=== PATIENT | male | born 1960 | race Caucasian/White ===

== ENCOUNTER → 2016-05-07 | Outpatient (CLI) | payer OTHER ==
[2016-05-07 13:06] LABS: BASO % 0.5 % (0.0-1.0); EOS % 0.5 % (0.0-3.0); LYMPH # 1.4 K/mm3 (1.5-4.5); LYMPH % 19.9 % (24.0-44.0); MEAN CORPUSCULAR HEMOGLOBIN 29.2 pg (27.0-33.0); MEAN CORPUSCULAR HGB CONC 32.1 g/dl (32.0-36.5); MEAN CORPUSCULAR VOLUME 90.9 fl (80.0-96.0); MONO # 0.4 K/mm3 (0.0-0.8); MONO % 5.4 % (0.0-5.0); RED CELL DISTRIBUTION WIDTH 13.2 % (11.5-14.5)
[2016-05-07 13:38] LABS: ALBUMIN 3.6 GM/DL (3.2-5.2); ALBUMIN/GLOBULIN RATIO 0.95 (1.00-1.93); ALKALINE PHOSPHATASE 114 U/L (45-117); ALT/SGPT 32 U/L (12-78); ANION GAP 9 MEQ/L (8-16); AST/SGOT 20 U/L (15-37); BILIRUBIN,TOTAL 0.4 MG/DL (0.2-1.0); BLOOD UREA NITROGEN 5 MG/DL (7-18); CALCIUM LEVEL 8.9 MG/DL (8.5-10.1); CARBON DIOXIDE LEVEL 29 MEQ/L (21-32); CHLORIDE LEVEL 104 MEQ/L (98-107); CHOLESTEROL LEVEL 216 MG/DL (<200); CREATININE FOR GFR 0.96 MG/DL (0.70-1.30); GLOMERULAR FILTRATION RATE > 60.0 (>56); GLUCOSE, FASTING 93 MG/DL (70-105); POTASSIUM SERUM 4.2 MEQ/L (3.5-5.1); SODIUM LEVEL 142 MEQ/L (136-145); TOTAL PROTEIN 7.4 GM/DL (6.4-8.2); TRIGLYCERIDES LEVEL 175 MG/DL (<150)
== END ==
LOC: M LAB 12:02
PROVIDERS: ATTEND Nurse Practitioner Adult Health
DX: D64.9 Anemia, unspecified (principal); E55.9 Vitamin D deficiency, unspecified; Z79.899 Other long term (current) drug therapy; F41.9 Anxiety disorder, unspecified
CPT/HCPCS: 36415; 80053; 80061; 80307; 82306; 85027; G0480

== ENCOUNTER 2017-02-22 19:20 | Emergency (ER) | payer OTHER ==
[~2017-02-22] VITALS: Ht 177.8 cm; Wt 90.9 kg
--- NOTE | 2017-02-22 21:20 | REPUSA ---
CT of the cervical spine Clinical history: Pain. Trauma. Technique: Multiple axial CT images were obtained through the cervical spine without administration o f contrast. Coronal and sagittal 3-D reconstructed images were also obtained. Comparison: None. Findings: The cervical vertebral bodies are in satisfactory alignment. There is reversal curvature the cervical spine. No fractures or dislocations are demonstrated. The odontoid process is intact. Intervertebral disc spaces are well-maintained. Mild facet arthropathy seen bilaterally. There is no evidence of fa cet subluxation. The neural foramen appear grossly patent. The cervical cranial junction is intact. T he cervical spinal canal demonstrates normal caliber and contour without evidence of spinal stenosis. The surrounding soft tissues are within normal limits. Impression: No acute findings. Mild spondylosis.
--- NOTE | 2017-02-22 21:20 | REPUSA ---
CT of the head Clinical history: Trauma. Protocol: Multiple axial CT images obtained with 5 mm slice thickness were obtained through the head without administration of contrast. Findings: The ventricles and sulci are symmetric but prominent in size bilaterally. There is focal en cephalomalacia in the left frontal lobe. There are periventricular areas of low attenuation throughou t the deep white matter. There is no evidence of acute hemorrhage or infarct. There is no midline liz ft, mass effect, or extra-axial fluid collection. There is chronic deformity of the left frontal bone . No discrete fracture is seen of these images. The other osseous structures are unremarkable. The vi sualized paranasal sinuses and mastoid air cells are clear. Impression: No acute hemorrhage or infarct. Findings are consistent with moderate age-related atrophy and chronic small vessel ischemic disease. 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
[2017-02-23 05:47] VITALS: BP 138/78
== END 2017-02-23 06:17 | disposition home or self-care (01) ==
LOC: M ED 19:20 → EDBD 19:20 → M ED 02-23 06:17
DX: F10.129 Alcohol abuse with intoxication, unspecified (principal); M47.9 Spondylosis, unspecified; G93.89 Other specified disorders of brain

== ENCOUNTER → 2017-03-24 | Outpatient (REF) | payer OTHER ==
[2017-03-24 17:27] LABS: BASO # 0.1 10^3/uL (0.0-0.2); BASO % 0.6 % (0.0-1.0); EOS % 0.5 % (0.0-3.0); IMMATURE GRANULOCYTE % 1.4 % (0-0); LYMPH # 1.4 10^3/uL (1.5-4.5); LYMPH % 16.3 % (24.0-44.0); MEAN CORPUSCULAR HEMOGLOBIN 29.1 pg (27.0-33.0); MEAN CORPUSCULAR HGB CONC 32.8 g/dl (32.0-36.5); MEAN CORPUSCULAR VOLUME 88.5 fl (80.0-96.0); MONO # 0.6 10^3/uL (0.0-0.8); MONO % 6.9 % (0.0-5.0); NEUTROPHILS # 6.5 10^3/uL (1.8-7.7); NEUTROPHILS % 74.3 % (36.0-66.0); PLATELET COUNT, AUTOMATED 197 10^3/uL (150-450); RED CELL DISTRIBUTION WIDTH 14.5 % (11.5-14.5); WHITE BLOOD COUNT 8.8 10^3/uL (4.0-10.0)
[2017-03-24 17:47] LABS: ALBUMIN 3.9 GM/DL (3.2-5.2); ALKALINE PHOSPHATASE 103 U/L (45-117); ALT/SGPT 68 U/L (12-78); ANION GAP 16 MEQ/L (8-16); AST/SGOT 47 U/L (7-37); BILIRUBIN,TOTAL 0.9 MG/DL (0.2-1.0); BLOOD UREA NITROGEN 11 MG/DL (7-18); CALCIUM LEVEL 8.6 MG/DL (8.5-10.1); CARBON DIOXIDE LEVEL 24 MEQ/L (21-32); CHLORIDE LEVEL 92 MEQ/L (98-107); CHOLESTEROL LEVEL 205 MG/DL (<200); CREATININE FOR GFR 0.95 MG/DL (0.70-1.30); GLOMERULAR FILTRATION RATE > 60.0 (>56); GLUCOSE, FASTING 80 MG/DL (70-105); MAGNESIUM LEVEL 2.4 MG/DL (1.8-2.4); POTASSIUM SERUM 4.5 MEQ/L (3.5-5.1); SODIUM LEVEL 132 MEQ/L (136-145); TOTAL PROTEIN 7.8 GM/DL (6.4-8.2); TRIGLYCERIDES LEVEL 112 MG/DL (<150)
[2017-03-24 17:58] LABS: FOLATE 5.1 NG/ML; VITAMIN B12 LEVEL 465 PG/ML
== END ==
LOC: M SFHCCAPE 07:57
PROVIDERS: ATTEND Physician Assistant
DX: I10 Essential (primary) hypertension (principal); Z87.898 Personal history of other specified conditions; Z12.5 Encounter for screening for malignant neoplasm of prostate

== ENCOUNTER → 2017-03-28 | Outpatient (CLI) | payer OTHER ==
--- NOTE | 2017-03-28 09:44 | REP ---
CHEST, TWO VIEWS: Two views of the chest are performed and compared to prior studies 10/08/2013 and 10/12/2009. There is interstitial fibrotic change along the left lateral chest wall with mild pleural thickening inferiorly on the left. There is minimal biapical pleural thickening. There is mild fibroatelectatic change in the right lung base. No new infiltrate is seen. The heart is normal in size. There is mild calcification of the thoracic aorta. The mediastinal silhouette is unchanged. IMPRESSION: Stable chronic findings without evidence of acute pulmonary disease. Signed by Sonu Chatterjee MD 03/28/2017 11:52 A
--- NOTE | 2017-03-29 01:17 | ECGEPIP ---
Stationary ECG Study [facility] Test Date: 2017-03-28 Pat Name: MERLENE NEVES Department: Room: - Gender: M [employer]: KAYLEIGH : 1960 Requested By: KATHIE Cornejo PA-C Order Number: [id number] Reading MD: Carlitos Wong Measurements Intervals [place] Rate: 76 P: 50 [place]: 170 QRS: 44 QRSD: 78 T: 30 QT: 355 QTc: 400 Interpretive Statements SINUS RHYTHM Tremor artifact Comparison tracing not on file Electronically Signed On 03-29-2017 1:17:42 EST by Carlitos Wong
== END ==
LOC: M RAD 08:25
PROVIDERS: ATTEND Physician Assistant
DX: R06.02 Shortness of breath (principal)

== ENCOUNTER 2017-07-20 14:44 | Emergency (ER) | payer OTHER ==
[2017-07-20] MEDS ORDERED: SUCCINYLCHOLINE 100 MG/5 ML SYRINGE (J0330) (14:45)
[2017-07-20] MEDS ORDERED: ETOMIDATE INJ 20MG/10ML VIAL (14:45)
[2017-07-20] MEDS ORDERED: LORazepam 2 MG/ML VIAL (J2060) As Ordered (14:51)
[2017-07-20] MEDS: LORazepam 2 MG/ML VIAL (J2060) IV (14:59)
[2017-07-20] MEDS: ETOMIDATE INJ 20MG/10ML VIAL IV (15:00)
[2017-07-20] MEDS: SUCCINYLCHOLINE INJ 200 MG/10 ML VIAL (J0330) IV (15:01)
[2017-07-20 15:07] LABS: BASO # 0.1 10^3/uL (0.0-0.2); BASO % 0.9 % (0.0-1.0); EOS # 0.1 10^3/uL (0.0-0.50); EOS % 0.7 % (0.0-3.0); HEMATOCRIT 44.7 % (42.0-52.0); IMMATURE GRANULOCYTE % 0.7 % (0-3.0); LYMPH # 3.1 10^3/uL (1.5-4.5); LYMPH % 23.5 % (24.0-44.0); MEAN CORPUSCULAR HEMOGLOBIN 27.3 pg (27.0-33.0); MEAN CORPUSCULAR HGB CONC 31.3 g/dl (32.0-36.5); MEAN CORPUSCULAR VOLUME 87.1 fl (80.0-96.0); MONO # 1.2 10^3/uL (0.0-0.8); MONO % 9.3 % (0.0-5.0); NEUTROPHILS # 8.6 10^3/uL (1.8-7.7); NEUTROPHILS % 64.9 % (36.0-66.0); PLATELET COUNT, AUTOMATED 449 10^3/uL (150-450); RED BLOOD COUNT 5.13 10^6/uL (4.30-6.10); RED CELL DISTRIBUTION WIDTH 14.4 % (11.5-14.5); WHITE BLOOD COUNT 13.2 10^3/uL (4.0-10.0)
[2017-07-20] MEDS: PROPOFOL 1,000 MG in APPROPRIATE DILUENT 1 EA IV ×2 (15:14→16:33)
[2017-07-20] MEDS: levETIRAcetam INJection 1,000 MG in D5W 100 ML IV (15:15)
[2017-07-20] MEDS: NS 1,000 ML IV ×2 (15:15→16:31)
[2017-07-20 15:22] LABS: AMMONIA 94 uMOL/L (<32)
[2017-07-20 15:30] LABS: ABG BASE EXCESS -5.9 (-2.0-2.0); ABG O2 SATURATION 93.2 % (95.0-99.0); ABG PARTIAL PRESSURE CO2 46.2 mmHg (35.0-45.0); ABG PARTIAL PRESSURE O2 79.4 mmHg (75.0-100.0); ABG STANDARD HCO3 19.6 MEQ/L (22.0-26.0); ABG TOTAL CO2 22.4 MEQ/L (22.0-29.0); ABG pH (ARTERIAL) 7.275 UNITS (7.350-7.450)
[2017-07-20] MEDS ORDERED: ISOVUE-370 76% 100ML VIAL (Q9967) As Ordered (15:36)
[2017-07-20 15:38] LABS: ALBUMIN 3.5 GM/DL (3.2-5.2); ALKALINE PHOSPHATASE 123 U/L (45-117); ALT/SGPT 40 U/L (12-78); ANION GAP 14 MEQ/L (8-16); AST/SGOT 37 U/L (7-37); BILIRUBIN,DIRECT 0.1 MG/DL (0.0-0.2); BILIRUBIN,TOTAL 0.5 MG/DL (0.2-1.0); BLOOD UREA NITROGEN 8 MG/DL (7-18); CARBON DIOXIDE LEVEL 23 MEQ/L (21-32); CHLORIDE LEVEL 101 MEQ/L (98-107); CPK CREATINE PHOSPHOKINASE 56 U/L (39-308); CREATININE FOR GFR 1.15 MG/DL (0.70-1.30); GLOMERULAR FILTRATION RATE > 60.0 (>56); GLUCOSE, FASTING 105 MG/DL (70-100); POTASSIUM SERUM 4.7 MEQ/L (3.5-5.1); SODIUM LEVEL 138 MEQ/L (136-145); TOTAL PROTEIN 7.9 GM/DL (6.4-8.2); TROPONIN I < 0.02 NG/ML (< 0.10)
[2017-07-20 15:44] LABS: LACTIC ACID SEPSIS PROTOCOL 10.6 MMOL/L (0.4-2.0)
[2017-07-20 15:44] LABS: CK-MB VALUE MASS < 1.0 NG/ML (<3.6); MB/CK RELATIVE INDEX 1.78 (< OR =4)
[2017-07-20 15:54] LABS: KETONE, URINE AUTO RFX TRACE mg/dL (NEGATIVE); LEUKOCYTE ESTERASE UR AUTO RFX NEGATIVE (NEGATIVE); MUCUS, URINE RFX SMALL (NEGATIVE); NITRITE, URINE AUTO RFX NEGATIVE (NEGATIVE); RBC, URINE AUTO RFX 3 /HPF (0-3); SPECIFIC GRAVITY UR AUTO RFX 1.014 (1.002-1.035); SQUAM EPITHELIAL CELL UR AURFX 0 /HPF (0-6); WBC, URINE AUTO RFX 2 /HPF (0-3)
[2017-07-20] MEDS ORDERED: MIDAZOLAM INJ 5 MG/ML VIAL (J2250) As Ordered (15:55)
[2017-07-20] MEDS ORDERED: REFRIGERATOR IV KEYS XX (16:00)
[2017-07-20] MEDS ORDERED: MIDAZOLAM HCL 100 MG in D5W 80 ML IV (16:00)
[2017-07-20 16:11] LABS: ETHYL ALCOHOL (ETHANOL) < 0.003 % (0.000-0.010)
[2017-07-20] MEDS: MIDAZOLAM HCL 50 MG in D5W 40 ML IV (16:11)
[2017-07-20 17:39] LABS: OSMOLALITY SERUM 291 MOSM/KG (275-295)
[2017-07-21] MEDS ORDERED: MIDAZOLAM HCL 100 MG in D5W 80 ML IV (05:00)
== END 2017-07-20 17:15 | disposition short-term general hospital (02) ==
LOC: M ED 14:44
DX: R41.82 Altered mental status, unspecified (principal); R56.9 Unspecified convulsions; E72.20 Disorder of urea cycle metabolism, unspecified; R22.0 Localized swelling, mass and lump, head; R91.8 Other nonspecific abnormal finding of lung field; Z87.820 Personal history of traumatic brain injury; Z79.899 Other long term (current) drug therapy
CPT/HCPCS: J0330